=== PATIENT | female | born 1980 | race Caucasian/White ===

== ENCOUNTER 2019-01-21 17:30 | Emergency (ER) | payer OTHER ==
[2019-01-21] MEDS ORDERED: NS 0.9% 1000 ML** 1,000 ML IV ONE (18:36)
[2019-01-21] MEDS ORDERED: Meclizine TAB* 12.5 MG PO ONE (18:36)
--- NOTE | 2019-01-21 18:54 | ED ---
Dizziness - HPI Summary HPI Summary: A 38 y/o female brought in by [facility] ambulance presents [place] [facility] with a chief complaint of dizziness today. She said that her son called the ambulance and that her son is worried about drug use. The patient claims that it has been 2 years since she last used drugs. She has had this type of dizziness before, but she says that she feels fine now being only slightly dizzy. She rated her pain as a 0/10 in severity. - History Of Current Complaint Chief Complaint: EDDizziness Stated Complaint: DIZZINESS PER EMS Time Seen by Provider: 01/21/19 18:36 Hx Obtained From: Patient Onset/Duration: Still Present - slightly, Suddenly Timing: Constant Severity Initially: Mild Character: Unable To Describe Aggravating Factor(s): Nothing Alleviating Factor(s): Nothing Associated Signs And Symptoms: Negative: Fever - Allergies/Home Medications Allergies/Adverse Reactions: Allergies Allergy/AdvReac Type Severity Reaction Status Date / Time MS Haloperidol [From Haldol] AdvReac Severe See Comment Verified 11/07/15 13:58 PMH/Surg Hx/FS Hx/Imm Hx Endocrine/Hematology History: Denies: Hx Diabetes, Hx Thyroid Disease Cardiovascular History: Denies: Hx Congestive Heart Failure, Hx Hypercholesterolemia, Hx Hypertension , Hx Pacemaker/ICD, Hx Peripheral Vascular Disease Respiratory History: Reports: Hx Asthma Denies: Hx Chronic Obstructive Pulmonary Disease (COPD) GI History: Denies: Hx Ulcer Comment Only: Other GI Disorders - GERD History: Denies: Hx Renal Disease Musculoskeletal History: Reports: Hx Back Problems - two herniated discs Denies: Hx Arthritis, Hx Rheumatoid Arthritis, Hx Osteoporosis Sensory History: Reports: Hx Contacts or Glasses Denies: Hx Cataracts, Hx Glaucoma, Hx Hearing Aid Opthamlomology History: Reports: Hx Contacts or Glasses Denies: Hx Cataracts, Hx Glaucoma Neurological History: Reports: Hx Headaches, Hx Migraine, Hx Seizures - states she started to exp seizures since using bath salts sev. yrs ago, Other Neuro Impairments/Disorders - anxiety, use of bath salts resulting in seizure activity Denies: Hx Transient Ischemic Attacks (TIA) Psychiatric History: Reports: Hx Anxiety, Hx Attention Deficit Hyperactivity Disorder, Hx Depression, Hx Post Traumatic Stress Disorder, Hx Inpatient Treatment - Multiple [place] to [facility] [place] [facility] H[facility]x - [facility], Hx Bipolar Disorder, Hx Suicide Attempt, Hx Substance Abuse - continues on Methadone, multiple inpatient rehab admissions, hx tx at [facility], Other Psychiatric Issues/Disorders - hosp >20days SI, MHE, bipolar Denies: Hx Eating Disorder, Hx Panic Disorder, Hx of Violent Episodes Against Others - pt. denies - Surgical History Surgery Procedure, Year, and Place: EAR TUBES,LEFT FOOT,RIGHT ELBOW,TONSILS, throat surgery - Immunization History Date of Tetanus Vaccine: Unk Date of Influenza Vaccine: 07/02 Infectious Disease History: No Infectious Disease History: Reports: Hx Hepatitis - hep c Denies: Hx Human Immunodeficiency Virus (HIV), Traveled Outside the [place] in Last 30 Days - Family History Known Family History: Negative: Cardiac Disease, Hypertension, Diabetes - Social History Alcohol Use: None Alcohol Amount: NOT DRINKING Hx Substance Use: Yes - Heroin Substance Use Type: Reports: Prescribed Substance Use Comment - Amount & Last Used: hx of opiate abuse reports clean since 2017 on suboxone Hx Tobacco Use: Yes Smoking Status (MU): Heavy Every Day Tobacco Smoker Type: Cigarettes Amount Used/How Often: 1/2 PPD Length of Time of Smoking/Using Tobacco: 15 YEARS Have You Smoked in the Last Year: Yes Review of Systems Negative: Fever Neurological: Other - positive: dizziness All Other Systems Reviewed And Are Negative: Yes Physical Exam - Summary Physical Exam Summary: VITAL SIGNS: Reviewed. GENERAL: Patient is a well-developed and nourished FEMALE who is lying comfortable in the stretcher. Patient is not in any acute respiratory distress. HEAD AND FACE: No signs of trauma. No ecchymosis, hematomas or skull depressions. No sinus tenderness. EYES: PERRLA, EOMI x 2, No injected conjunctiva, no nystagmus. EARS: Hearing grossly intact. Ear canals and tympanic membranes are within normal limits. MOUTH: Oropharynx within normal limits. NECK: Supple, trachea is midline, no adenopathy, no JVD, no carotid bruit, no c- spine tenderness, neck with full ROM. CHEST: Symmetric, no tenderness at palpation. LUNGS: Clear to auscultation bilaterally. No wheezing or crackles. CVS: Regular rate and rhythm, S1 and S2 present, no murmurs or gallops appreciated. ABDOMEN: Soft, non-tender. No signs of distention. No rebound, no guarding, and no masses palpated. Bowel sounds are normal. EXTREMITIES: FROM in all major joints, no edema, no cyanosis or clubbing. NEURO: Alert and oriented x 3. No acute neurological deficits. Speech is normal and follows commands. SKIN: Dry and warm. Triage Information Reviewed: Yes Vital Signs On Initial Exam: Initial Vitals Temp Pulse Resp BP Pulse Ox 98.7 F 72 20 121/84 96 01/21/19 17:50 01/21/19 17:50 01/21/19 17:50 01/21/19 17:50 01/21/19 17:50 Vital Signs Reviewed: Yes Diagnostics - Vital Signs Vital Signs Temp Pulse Resp BP Pulse Ox 01/21/19 18:00 73 96 01/21/19 17:54 75 97 01/21/19 17:53 72 121/84 93 01/21/19 17:50 98.7 F 72 20 121/84 96 - Laboratory Lab Statement: Any lab studies that have been ordered have been reviewed, and results considered in the medical decision making process. Dizzy Course/Dx - Course Assessment/Plan: A 38 y/o female brought in by [facility] ambulance presents to [facility] with a chief complaint of dizziness today. She said that her son called the ambulance and that her son is worried about drug use. The patient claims that it has been 2 years since she last used drugs. She has had this type of dizziness before, but she says that she feels fine now being only slightly dizzy. She rated her pain as a 0/10 in severity. The patient declines any blood work, chest x-ray or head CT. She reports that she has history of vertigo therefore she took meclizine. Urinalysis is negative for UTI and urine toxicology is negative. At this point the patient was to go home and she will sign AGAINST MEDICAL ADVICE. The patient is alert and oriented 3. I extensively discussed with the patient the benefits and risk of leaving AMA. I also discussed the alternatives to leaving AMA, however, the patient still insist to leave the hospital AMA. The patient is clinically sober, free from distracting injury, appears to have intact insight and judgment and reason and in my opinion has the capacity to make decisions. Patient has full capacity and is cognitively intact. The patient presents with dizziness, I have explained that I am concerned with Arrhythmia, TIA, MAI, UT and may represent a treating problem. The patient verbalizes understanding of my concerns. The primary nurse and the charge nurse also strongly recommended that the patient should not leave AMA. Patient understands the risk of leaving AMA, which includes but is not restricted to . Patient signed the AMA form. Patient was also advised to return to ED if he changes his mind or if the symptoms worsen or other symptoms appear. Patient understands and agrees. Again, I discussed all the findings and test results with the patient. Patient was instructed to return to the emergency room immediately if any of the symptoms return or worsens. Plan of care was discussed with the patient and understands and agrees. All questions were answered at patient satisfaction. There were no further complaints or concerns. Patient signed AMA and he was discharged AMA. - Diagnoses Provider Diagnoses: Dizziness, Left against medical advice Discharge - Sign-Out/Discharge Documenting (check all that apply): Patient Departure Patient Received Moderate/Deep Sedation with Procedure: No - Discharge Plan Condition: Fair Disposition: AGAINST MEDICAL ADVICE Patient Education Materials: Dizziness (ED) Referrals: Ethan Bell MD [Primary Care Provider] - (2-3 days) Additional Instructions: FOLLOW UP WITH YOUR PRIMARY CARE PROVIDER. RETURN TO THE ED FOR ANY WORSENING OR NEW SYMPTOMS. - Billing Disposition and Condition Condition: FAIR Disposition: Against Medical Advice - Attestation Statements Document Initiated by Scribe: Yes Documenting Scribe: Carlos Appiah Provider For Whom Kody is Documenting (Include Credential): Jeffrey Burkett MD Scribe Attestation: Carlos Acosta scribed for Jeffrey Burkett MD on 01/23/19 at 1223. Scribe Documentation Reviewed: Yes Provider Attestation: The documentation as recorded by the Carlos coronado accurately reflects the service I personally performed and the decisions made by , Jeffrey Burkett MD Status of Scribe Document: Viewed
[2019-01-21 19:04] LABS: Urine Appearance Cloudy; Urine Bilirubin Negative (Negative); Urine Blood Negative (Negative); Urine Color Yellow; Urine Glucose Negative (Negative); Urine Ketones Negative (Negative); Urine Nitrite Negative (Negative); Urine Protein Negative (Negative); Urine Specific Gravity 1.024 (1.010-1.030); Urine Urobilinogen Negative (Negative)
[2019-01-21 19:22] LABS: Urine Benzodiazepine Screen None Detected (None Detect); Urine Opiates Screen None Detected (None Detect)
[2019-01-21 19:47] VITALS: BP 124/79
== END 2019-01-21 19:45 | disposition left against medical advice (07) ==
LOC: ED 17:30
DX: R42 Dizziness and giddiness (principal); Z53.21 Procedure and treatment not carried out due to patient leaving prior to being seen by health care provider; Z88.8 Allergy status to other drugs, medicaments and biological substances; F17.210 Nicotine dependence, cigarettes, uncomplicated
CPT/HCPCS: 80307; 81003; 96360; 99283; A9270-GY

== ENCOUNTER 2019-03-05 02:38 | Emergency (ER) | payer OTHER ==
--- NOTE | 2019-03-05 03:09 | ED ---
Psychiatric Complaint - HPI Summary HPI Summary: This patient is a 39 year old female brought in by EMS presenting to [facility] with a psychiatric complaint since tonight. The patient states she feels different. She states she has a psychiatric Hx but it does not feel like this, even though she feels "different". She reports dizziness. Her mother called EMS telling them she was having a psychotic break. She thinks there is something physically wrong with her brain. She denies CP and SOB. - History Of Current Complaint Time Seen by Provider: 03/05/19 02:43 Hx Obtained From: Patient, EMS Hx Last Menstrual Period: January 2015 Onset/Duration: Lasting Minutes - Allergies/Home Medications Allergies/Adverse Reactions: Allergies Allergy/AdvReac Type Severity Reaction Status Date / Time haloperidol [From Haldol] Allergy Unknown Verified 03/05/19 02:57 Reaction Details Home Medications: Home Medications Suboxone 8-2 mg SL TAB* 1 strip PO TID 03/05/19 [History Confirmed 03/05/19] Tegretol TAB(*) 400 mg PO BID 03/05/19 [History Confirmed 03/05/19] PMH/Surg Hx/FS Hx/Imm Hx Endocrine/Hematology History: Denies: Hx Diabetes, Hx Thyroid Disease Cardiovascular History: Denies: Hx Congestive Heart Failure, Hx Hypercholesterolemia, Hx Hypertension , Hx Pacemaker/ICD, Hx Peripheral Vascular Disease Respiratory History: Reports: Hx Asthma Denies: Hx Chronic Obstructive Pulmonary Disease (COPD) GI History: Denies: Hx Ulcer Comment Only: Other GI Disorders - GERD History: Denies: Hx Renal Disease Musculoskeletal History: Reports: Hx Back Problems - two herniated discs Denies: Hx Arthritis, Hx Rheumatoid Arthritis, Hx Osteoporosis Sensory History: Reports: Hx Contacts or Glasses Denies: Hx Cataracts, Hx Glaucoma, Hx Hearing Aid Opthamlomology History: Reports: Hx Contacts or Glasses Denies: Hx Cataracts, Hx Glaucoma Neurological History: Reports: Hx Headaches, Hx Migraine, Hx Seizures - states she started to exp seizures since using bath salts sev. yrs ago, Other Neuro Impairments/Disorders - anxiety, use of bath salts resulting in seizure activity Denies: Hx Transient Ischemic Attacks (TIA) Psychiatric History: Reports: Hx Anxiety, Hx Attention Deficit Hyperactivity Disorder, Hx Depression, Hx Post Traumatic Stress Disorder, Hx Inpatient Treatment - Multiple admissions to [facility] at [facility], Hx [facility] Tx - [facility], Hx Bipolar Disorder, Hx Suicide Attempt, Hx Substance Abuse - continues on Methadone, multiple inpatient rehab admissions, hx tx at [facility], Other Psychiatric Issues/Disorders - hosp >20days SI, MHE, bipolar Denies: Hx Eating Disorder, Hx Panic Disorder, Hx of Violent Episodes Against Others - pt. denies - Surgical History Surgery Procedure, Year, and Place: EAR TUBES,LEFT FOOT,RIGHT ELBOW,TONSILS, throat surgery - Immunization History Date of Tetanus Vaccine: Unk Date of Influenza Vaccine: 07/02 Infectious Disease History: Yes Infectious Disease History: Reports: Hx Hepatitis - hep c Denies: Hx Human Immunodeficiency Virus (HIV), Traveled Outside the [place] in Last 30 Days - Family History Known Family History: Negative: Cardiac Disease, Hypertension, Diabetes - Social History Alcohol Use: None Alcohol Amount: NOT DRINKING Hx Substance Use: Yes - Heroin Substance Use Type: Reports: Prescribed Substance Use Comment - Amount & Last Used: hx of opiate abuse reports clean since 2016 on suboxone Hx Tobacco Use: Yes Smoking Status (MU): Light Every Day Tobacco Smoker Type: Cigarettes Amount Used/How Often: 1/2 PPD Length of Time of Smoking/Using Tobacco: 15 YEARS Have You Smoked in the Last Year: Yes Review of Systems Negative: Chest Pain Negative: Shortness Of Breath Neurological: Other - Dizziness Psychological: Other - "Psychotic break" All Other Systems Reviewed And Are Negative: Yes Physical Exam - Summary Physical Exam Summary: Appearance: Well appearing, no pain distress Skin: warm, dry, reflects adequate perfusion Head/face: normal Eyes: EOMI, LACEY ENT: normal Neck: supple, non-tender Respiratory: CTA, breath sounds present Cardiovascular: RRR, pulses symmetrical Abdomen: non-tender, soft Musculoskeletal: normal, strength/ROM intact Neuro: normal, sensory motor intact, A&Ox3 Triage Information Reviewed: Yes Vital Signs On Initial Exam: Initial Vitals Temp Pulse Resp BP Pulse Ox 99.2 F 98 20 113/73 98 03/05/19 02:45 03/05/19 02:45 03/05/19 02:45 03/05/19 02:45 03/05/19 02:45 Vital Signs Reviewed: Yes Diagnostics - Vital Signs Vital Signs Temp Pulse Resp BP Pulse Ox 03/05/19 02:45 99.2 F 98 20 113/73 98 - Laboratory Result Diagrams: 03/05/19 03:56 03/05/19 03:56 Lab Statement: Any lab studies that have been ordered have been reviewed, and results considered in the medical decision making process. - CT Brain CT Interpretation Completed By: Radiologist Summary of CT Findings: No acute intracranial abnormality. ED Provider has reviewed this report. Course/Dx - Course Course Of Treatment: This patient is a 39 year old female brought in by EMS presenting to [facility] with a psychiatric complaint since tonight. Brain CT was unremarkable for neurological problems. Bloodwork/UA obtained. Patient medically cleared for MHE. Patient will be signed out to Dr. Burkett at shift change 0700 pending MHE. - Differential Dx/Clinical Impression Provider Diagnosis: Depression Discharge - Sign-Out/Discharge Documenting (check all that apply): Sign-Out Patient Signing out patient TO: Jeffrey Burkett - At shift change 0700 pending MHE Patient Received Moderate/Deep Sedation with Procedure: No - Discharge Plan Condition: Stable Referrals: Ethan Bell MD [Primary Care Provider] - - Billing Disposition and Condition Condition: STABLE - Attestation Statements Document Initiated by Scribe: Yes Documenting Scribe: Clive Irby Provider For Whom Emekaibe is Documenting (Include Credential): You Forrest MD Scribe Attestation: Clive Acosta scribed for You Forrest MD on 03/05/19 at 0646. Scribe Documentation Reviewed: Yes Provider Attestation: The documentation as recorded by the Clive coronado accurately reflects the service I personally performed and the decisions made by , You Forrest MD Status of Scribe Document: Viewed
[2019-03-05 03:35] LABS: Urine Appearance Cloudy; Urine Bilirubin Negative (Negative); Urine Blood Negative (Negative); Urine Color Yellow; Urine Glucose Negative (Negative); Urine Ketones Negative (Negative); Urine Nitrite Negative (Negative); Urine Protein Negative (Negative); Urine Specific Gravity 1.012 (1.010-1.030); Urine Urobilinogen Negative (Negative)
[2019-03-05 03:54] LABS: Urine Benzodiazepine Screen None Detected (None Detect); Urine Opiates Screen None Detected (None Detect)
[2019-03-05 04:08] LABS: Hematocrit 40 % (35-47); Hemoglobin 13.2 g/dL (12.0-16.0); Mean Corpuscular HGB Conc 33 g/dL (31-36); Mean Corpuscular Hemoglobin 32 pg (27-31); Mean Corpuscular Volume 97 fL (80-97); Mean Platelet Volume 6.6 fL (7.4-10.4); Platelet Count 168 10^3/uL (150-450); Red Blood Count 4.14 10^6 /uL (3.70-4.87); Red Cell Distribution Width 13 % (10-15); White Blood Count 4.3 10^3/uL (3.5-10.8)
[2019-03-05 04:28] LABS: Albumin 4.2 g/dL (3.2-5.2); Anion Gap 9 mmol/L (2-11); CO2 Carbon Dioxide 23 mmol/L (22-32); Chloride 104 mmol/L (101-111); Potassium 4.5 mmol/L (3.5-5.0); Sodium 136 mmol/L (135-145)
[2019-03-05 04:32] LABS: HCG Pregnancy < 0.60 mIU/mL
[2019-03-05 04:33] LABS: ABS Eosinophils 0.1 10^3/ul (0-0.6); ABS Lymphocytes 0.8 10^3/ul (1.0-4.8); ABS Monocytes 0.3 10^3/ul (0-0.8); ALT 15 U/L (7-52); AST 17 U/L (13-39); Albumin/Globulin Ratio 1.6 (1-3); Alcohol < 10 mg/dL (<10); Alkaline Phosphatase 67 U/L (34-104); BUN/Creatinine Ratio 26.6 (8-20); Blood Urea Nitrogen 17 mg/dL (6-24); EGFR African American 125.7 (>60); EGFR Non-African American 103.9 (>60); Eosinophil % 1.7 %; Globulin 2.6 g/dL (2-4); Glucose 121 mg/dL (70-100); Lymphocyte % 15.6 %; Nucleated Red Blood Cells % 0.1; Salicylate < 2.50 mg/dL (<30); Total Protein 6.8 g/dL (6.4-8.9)
[2019-03-05 04:57] LABS: TSH (Thyroid Stimulating Horm) 3.49 mcIU/mL (0.34-5.60)
[2019-03-05 05:48] LABS: Acetaminophen < 15 mcg/mL
--- NOTE | 2019-03-05 07:10 | ED ---
Progress - Progress Note Progress Note: This pt is a sign out from Dr. Forrest to Dr. Burkett at shift change 0700 03/05/19 pending a MHE and disposition. At 0915 Dr. Flannery, psychiatrist, recommended discharging the pt home with a Dx of adjustive mood disorder. - Consult/PCP Time Called: 02:45 Course/Dx - Course Course Of Treatment: This pt is a sign out from Dr. Forrest to Dr. Burkett at shift change 0700 03/05/19 pending a MHE and disposition. . Patient was ablated by Dr. Flannery and recommends discharge home with follow- up as an outpatient. Patient is hemolyticus stable alert and oriented 3. - Diagnoses Provider Diagnoses: Adjustment disorder - Provider Notifications Discussed Care Of Patient With: Tomy Flannery Time Discussed With Above Provider: 09:15 Instructed by Provider To: Other - discharge Discharge - Sign-Out/Discharge Documenting (check all that apply): Patient Departure - discharge Patient Received Moderate/Deep Sedation with Procedure: No - Discharge Plan Condition: Stable Disposition: HOME Patient Education Materials: Mood Disorders (ED) Referrals: Ethan Bell MD [Primary Care Provider] - - Billing Disposition and Condition Condition: STABLE Disposition: Home - Attestation Statements Document Initiated by Kody: Yes Documenting Scribe: Angelo Hill Provider For Whom Kody is Documenting (Include Credential): Jeffrey Burkett MD Scribe Attestation: Angelo Acosta scribed for Jeffrey Burkett MD on 03/05/19 at 0933. Scribe Documentation Reviewed: Yes Provider Attestation: The documentation as recorded by the Angelo coronado accurately reflects the service I personally performed and the decisions made by , Jeffrey Burkett MD Status of Scribe Document: Viewed
[2019-03-05 09:25] VITALS: BP 107/59
== END 2019-03-05 09:40 | disposition home or self-care (01) ==
LOC: ED 02:38
DX: F43.21 Adjustment disorder with depressed mood (principal); R42 Dizziness and giddiness; R56.9 Unspecified convulsions; Z79.899 Other long term (current) drug therapy; Z88.8 Allergy status to other drugs, medicaments and biological substances; F17.210 Nicotine dependence, cigarettes, uncomplicated
CPT/HCPCS: 36415; 70450; 80053; 80307; 80320; 80329; 81003; 84443; 84702; 85025; 99285; G0480